=== PATIENT | female | born 1945 ===

== ENCOUNTER 2019-08-13 05:18 | Day surgery (SDC) | payer OTHER ==
[~2019-08-13 05:18] MED LIST: CALTRATE 600 +1 EACH PO; IBERSARTAN PO; ZOCOR20 MG PO
[2019-08-13] MEDS ORDERED: MACROBID 100 M100 MG PO (10:31)
[2019-08-13] MEDS ORDERED: ULTRACET PO (10:32)
== END 2019-08-13 12:15 | disposition home or self-care (01) ==
LOC: CIR.AMB 05:18 → ADM 11:45 → CIR.AMB 12:15
DX: N36.41 Hypermobility of urethra (principal); N81.3 Complete uterovaginal prolapse